=== PATIENT | male | born 1950 | race Caucasian/White ===

== ENCOUNTER 2022-08-25 19:28 | Inpatient (IN) | payer MEDICARE, OTHER ==
[~2022-08-25] VITALS: Ht 172.7 cm; Wt 83.9 kg
[2022-08-25] MEDS ORDERED: TAMS-3 PO (19:54)
[2022-08-25] MEDS ORDERED: FAMO20TA8 PO (19:54)
[2022-08-25] MEDS ORDERED: LOSA25TA27 PO (19:54)
[2022-08-25] MEDS ORDERED: CLOP75TA33 PO (19:54)
[2022-08-25] MEDS ORDERED: FURO40TA5 PO (19:54)
[2022-08-25] MEDS ORDERED: ALPR0.255 PO (19:54)
[2022-08-25] MEDS ORDERED: APIX5TAB PO (19:54)
[2022-08-25] MEDS ORDERED: POLY17PO4 PO (19:54)
[2022-08-25] MEDS ORDERED: MAG355OR18 PO (19:54)
[2022-08-25] MEDS ORDERED: AMIO200T5 PO (19:54)
[2022-08-25] MEDS ORDERED: POTA-58 PO (19:54)
[2022-08-25] MEDS ORDERED: ACET-2154 PO (19:54)
[2022-08-25] MEDS ORDERED: MELA3TAB41 PO (19:54)
[2022-08-25] MEDS ORDERED: CARV3.122 PO (19:54)
[2022-08-25] MEDS ORDERED: ATOR80TA PO (19:54)
[2022-08-25] MEDS ORDERED: IPRA3AMP22 IH (19:54)
--- NOTE | 2022-08-25 20:00 | NUR ---
Spoke to patient's son regarding their request for transfer to [facility]. Son ruby requested to speak to coke handling supervisor and Dr. Chaudhry. His phone number [phone].
[2022-08-25 21:22] LABS: CARBON DIOXIDE 23 mmol/L (21-32); CHLORIDE 97 mmol/L (98-107); CREATININE 2.2 mg/dL (0.6-1.3); GLUCOSE 112 mg/dL (74-106); POTASSIUM 4.5 mmol/L (3.5-5.1); UREA NITROGEN, BLOOD 45 mg/dL (7-18)
[2022-08-25 21:25] LABS: MEAN CORPUSCULAR HEMOGLOBIN 27.3 uug (23.8-33.4); MEAN CORPUSCULAR VOLUME 83.4 fL (73.0-96.2); PLATELET COUNT (AUTO) 231 K/uL (152-348)
[2022-08-25 21:38] LABS: ALANINE AMINOTRANSFERASE 522 U/L (16-63); ALKALINE PHOSPHATASE 455 U/L (50-136); ASPARTATE AMINOTRANSFERASE 358 U/L (15-37); BILIRUBIN,DIRECT 1.1 mg/dL (0.0-0.2); BILIRUBIN,TOTAL 1.9 mg/dL (0.2-1.0); TOTAL PROTEIN, SERUM 7.1 g/dL (6.4-8.2)
[2022-08-25 21:52] LABS: MAGNESIUM 2.4 mg/dL (1.8-2.4)
[2022-08-25] MEDS ORDERED: ASPIRIN 81 MG TAB.CHEW PO ONE (22:15)
[2022-08-25] MEDS ORDERED: ENOXAPARIN SODIUM 80 MG/0.8 ML DISP.SYRIN SQ ONE ×2 (22:15→23:41)
[2022-08-25 22:41] LABS: LYMPHOCYTES % (MANUAL) 24 % (20-40); MONOCYTES % (MANUAL) 13 % (2-10); NEUTROPHILS % (MANUAL) 63 % (42-75)
--- NOTE | 2022-08-25 22:50 | NUR ---
[facility] unable to take patient tonight, was insstructed to call back tomorrow for an available bed.
[2022-08-25] MEDS ORDERED: ASPIRIN 81 MG TAB.CHEW ONE (23:41)
[2022-08-25] MEDS ORDERED: FUROSEMIDE 40 MG/4 ML VIAL IVP SCH (23:45)
[2022-08-25] MEDS ORDERED: NITROGLYCERIN 0.4 MG/TAB BOTTLE SL PRN (23:45)
[2022-08-25] MEDS ORDERED: ENOXAPARIN SODIUM 30 MG/0.3 ML DISP.SYRIN SQ SCH (23:45)
[2022-08-26] MEDS ORDERED: MAG HYDROX/AL HYDROX/SIMETH 30 ML LIQUID UDC PO PRN
[2022-08-26] MEDS ORDERED: ALPRAZOLAM 0.25 MG TABLET PO PRN
[2022-08-26] MEDS ORDERED: MIRALAX 17 GM POWD.PACK PO PRN
[2022-08-26] MEDS ORDERED: IPRATROPIUM BROMIDE 0.5 MG/2.5 ML NEBU NEB PRN
[2022-08-26] MEDS ORDERED: ALBUTEROL SULFATE 2.5 MG/3 ML NEBU IH PRN
--- NOTE | 2022-08-26 | NUR ---
Called 3rd fl for Tele TD bed.
--- NOTE | 2022-08-26 01:30 | NUR ---
Taken for lung scan
--- NOTE | 2022-08-26 02:20 | NUR ---
Called 3rd fl for Tele TD bed again. Given RM 330.
--- NOTE | 2022-08-26 02:50 | NUR ---
Jessie HART called for report.
[2022-08-26] MEDS ORDERED: ACETAMINOPHEN 325 MG TABLET PO PRN (04:00)
--- NOTE | 2022-08-26 05:00 | NUR ---
Pt. admitted to TELE-TD , under care of Dr. Jefferson Belongs List completed Jessie RN aware of patients arrival.
[2022-08-26 05:22] VITALS: BP 90/59
--- NOTE | 2022-08-26 05:25 | NUR ---
admitted this 71 y.o. male with complaints of increasing edema on bilateral lower extremities.he has had a very complicated past medical history.he came from [facility], he is covid negative.pt denies any pain at this time, refused to put on a gown , and wanted to sit just on a bedside chair. did not want to be bothered.nursing staff introduced themselves to pt but was driven away. active listening provided.on oxygen inhalation of 1literl/nc forr sob.
[2022-08-26] MEDS ORDERED: CEFEPIME HCL 1 G in IV DEXTROSE 5% 50 ML IV SCH (06:00)
--- NOTE | 2022-08-26 07:20 | NUR ---
UNABLE TO ASSESS, PT KEPT REFUSING CARE,. ENDORSED TO AM NURSE, IN APPARENTLY FAIR CONDITION ,STILL SITTED ON A BS CHAIR, ,TELE READING ,CONTROL AFIB.
[2022-08-26 07:37] LABS: HEMATOCRIT 37.6 % (36.7-47.1); MEAN CORPUSCULAR HEMOGLOBIN 27.4 uug (23.8-33.4); MEAN CORPUSCULAR VOLUME 83.3 fL (73.0-96.2); PLATELET COUNT (AUTO) 243 K/uL (152-348)
[2022-08-26 07:49] LABS: BILIRUBIN,DIRECT 0.9 mg/dL (0.0-0.2); BILIRUBIN,TOTAL 1.6 mg/dL (0.2-1.0); CREATININE 2.4 mg/dL (0.6-1.3); MAGNESIUM 2.2 mg/dL (1.8-2.4); PHOSPHOROUS 4.5 mg/dL (2.5-4.9); TOTAL PROTEIN, SERUM 6.4 g/dL (6.4-8.2)
[2022-08-26] MEDS: CEFEPIME HCL 1 G in IV DEXTROSE 5% 50 ML IV SCH ×3 (08:00→21:36)
[2022-08-26 08:03] LABS: BILIRUBIN,TOTAL 1.7 mg/dL (0.2-1.0)
[2022-08-26 08:08] VITALS: BP 93/66
[2022-08-26] MEDS: FUROSEMIDE 40 MG/4 ML VIAL IVP SCH ×2 (08:43→16:27)
[2022-08-26] MEDS: AMIODARONE HCL 200 MG TABLET PO SCH ×2 (08:44→16:26)
[2022-08-26] MEDS: POTASSIUM CHLORIDE 20 MEQ TAB.PRT.SR PO SCH (08:49)
[2022-08-26] MEDS: CLOPIDOGREL 75 MG TABLET PO SCH (08:50)
[2022-08-26] MEDS: FAMOTIDINE 20 MG TABLET PO SCH (08:50)
[2022-08-26] MEDS: CARVEDILOL 3.125 MG TABLET PO SCH ×2 (08:51→16:25)
[2022-08-26] MEDS: APIXABAN 5 MG TABLET PO SCH ×2 (09:00→21:21)
[2022-08-26] MEDS ORDERED: ASPIRIN EC 81 MG TABLET.DR PO SCH (09:00)
[2022-08-26] MEDS ORDERED: APIXABAN 2.5 MG TABLET PO SCH (09:00)
[2022-08-26 09:10] LABS: EOSINOPHILS % (MANUAL) 1 % (0-8); LYMPHOCYTES % (MANUAL) 17 % (20-40); MONOCYTES % (MANUAL) 14 % (2-10); NEUTROPHILS % (MANUAL) 68 % (42-75)
[2022-08-26 09:18] LABS: THYROID STIMULATING HORMONE 4.525 mIU/mL (0.358-3.740)
--- NOTE | 2022-08-26 11:47 | NUR ---
Patient continuing to refuse care. Patient refusing INDUSTRIAL GAS FITTER from performing vitals check.
--- NOTE | 2022-08-26 12:18 | NUR ---
Spoke to patient's son and daughter. Notified of patient's unwillingness for patient care and reiterated that this is how the patient usually is. Patient refusing care and most medications throughout shift, unless it is medications that he is familiar with. Lactic Acid elevated, Dr. Melendrez notified. j
--- NOTE | 2022-08-26 13:09 | NUR ---
Patient complaining of lack of sleep, due to patient refusing procedures, vital signs, and medications. Agreed with patient that I would let him sleep, and only speak to him when he's awake in bed room. Patient sleeping on chair near bedside, resting head on bed. Will continue to monitor patient throughout shift.
[2022-08-26 16:25] VITALS: BP 89/67
--- NOTE | 2022-08-26 18:03 | NUR ---
Patient now more compliant with plan of care. Patient able to express feelings in hopes to a resolution to receive care and medication during stay. Patient tolerated care well throughout shift, with less complaints of pain or distress towards end of shift. IV site on Left AC patent and intact. Bed left in lowest position with call light within reach. Comfort measures provided. Will endorse information to PM nurse.
--- NOTE | 2022-08-26 19:00 | NUR ---
Received patient seated at wheelchair, with sob on exercertion, no complain of chest pain, tele monitor A fib, heart rate 98 up to 105. Patient strongly said not to be disturb or wake him up when he's asleep, no matter what. Patient states that he did not have enough sleep last night due to nurses doing vital signs, giving him ice which he requested, checking his tele monitor prove, etc. Patient sound like nurses is just bother him for no reason. Explained to patient that nurses just doing their job, not to just disturb him or bother him, Explained to patient also that he has the right to refused care, refused medications, etc. Presented a plan to the patient that nurses will only come his room on plan hours, such as when giving his meds or do vital signs when he's awake, not wake him up when he's asleep, patient agreed to the plan, cont to monitor.
[2022-08-26 20:00] VITALS: BP 89/71
[2022-08-26] MEDS ORDERED: ENOXAPARIN SODIUM 80 MG/0.8 ML DISP.SYRIN SQ SCH (21:00)
[2022-08-26] MEDS ORDERED: LOSARTAN POTASSIUM 25 MG TABLET PO SCH (21:00)
[2022-08-26] MEDS: TAMSULOSIN HCL 0.4 MG CAP.SR.24H PO SCH (21:19)
[2022-08-26] MEDS: ATORVASTATIN 40 MG TABLET PO SCH (21:19)
[2022-08-26] MEDS: MELATONIN 3 MG TABLET PO SCH (21:34)
--- NOTE | 2022-08-27 | NUR ---
Patient sleep intermittently, prefer to sleep seated on the chair, head rested on the side of the bed, states that it helps him breath better. Patient lower extremities swollen 2+, refused to lay in bed, on continuous oxygen at 2 liters sat 93 to 98%, continue with the plan that staff goes to check his tele monitor when only needed or when he call for assistance. Staff goes to check patient every two hours just to see the patient not to disturb when asleep. cont to monitor.
--- NOTE | 2022-08-27 05:45 | NUR ---
Patient IV site dislogged, prefer to have new one later on, prefer to be left alone at this time, respect patient wishes. cont to monitor.
--- NOTE | 2022-08-27 06:36 | NUR ---
unable to weigh and reinsert new iv line, patient, refused to be disturb, patient asleep, will endorse to next shift.
--- NOTE | 2022-08-27 06:38 | NUR ---
Patient sleep intermittently, tries to sleep in bed, but unsuccessful, difficulty breathing when in bed. Patient back to the chair, head resting on the bed, asleep at this time, no chest, sob on excertion, on 2 liters, sat wnl, cont to monitor.
[2022-08-27 08:00] VITALS: BP 96/70
[2022-08-27 08:27] LABS: HEMATOCRIT 36.2 % (36.7-47.1); MEAN CORPUSCULAR HEMOGLOBIN 27.1 uug (23.8-33.4); PLATELET COUNT (AUTO) 210 K/uL (152-348)
[2022-08-27] MEDS: CEFEPIME HCL 1 G in IV DEXTROSE 5% 50 ML IV SCH ×2 (08:29→20:49)
[2022-08-27] MEDS: FUROSEMIDE 40 MG/4 ML VIAL IVP SCH ×3 (08:30→16:56)
[2022-08-27] MEDS: AMIODARONE HCL 200 MG TABLET PO SCH ×2 (08:34→16:55)
[2022-08-27] MEDS: POTASSIUM CHLORIDE 20 MEQ TAB.PRT.SR PO SCH (08:35)
[2022-08-27] MEDS: FAMOTIDINE 20 MG TABLET PO SCH (08:35)
[2022-08-27] MEDS: CLOPIDOGREL 75 MG TABLET PO SCH (08:35)
[2022-08-27] MEDS: APIXABAN 5 MG TABLET PO SCH ×2 (08:36→20:59)
[2022-08-27] MEDS: CARVEDILOL 3.125 MG TABLET PO SCH ×3 (08:42→16:57)
[2022-08-27 08:47] LABS: NEUTROPHILS % (MANUAL) 0 % (42-75)
[2022-08-27 08:57] LABS: BILIRUBIN,DIRECT 0.8 mg/dL (0.0-0.2); BILIRUBIN,TOTAL 1.7 mg/dL (0.2-1.0); CREATININE 2.2 mg/dL (0.6-1.3); MAGNESIUM 2.3 mg/dL (1.8-2.4); PHOSPHOROUS 3.8 mg/dL (2.5-4.9); POTASSIUM 3.9 mmol/L (3.5-5.1); TOTAL PROTEIN, SERUM 6.3 g/dL (6.4-8.2)
--- NOTE | 2022-08-27 14:35 | NUR ---
Patient requesting not to be bothered while he sleeps. Sign placed on patient's door, do not disturb. Notified patient to use call light when assistance needed. Will continue to monitor patient throughout shift.
--- NOTE | 2022-08-27 18:03 | NUR ---
Patient difficult during half of shift, refusing to be bothered when vitals or lab needed to be drawn. Patient more compliant towards end of shift, but complaints of cold room. Engineering notified. Patient given warm blanket to help with cold. IV site on right hand patent and intact. Comfort measures provided. Will endorse information to PM nurse.
[2022-08-27 20:32] VITALS: BP 89/64
[2022-08-27] MEDS: TAMSULOSIN HCL 0.4 MG CAP.SR.24H PO SCH (20:59)
[2022-08-27] MEDS: MELATONIN 3 MG TABLET PO SCH (21:01)
[2022-08-27] MEDS: ATORVASTATIN 40 MG TABLET PO SCH (21:01)
--- NOTE | 2022-08-27 21:30 | NUR ---
pt is having multiple requests; staff tried to accommodate; earlier family at bedside; update given to them in front of the patient;
--- NOTE | 2022-08-28 | NUR ---
prior arrangement pt refused to be bothered and be awakened; pt refused VS at this time; on the monitor pt's HR is 90 and RR of 20; will continue to monitor.
--- NOTE | 2022-08-28 03:54 | NUR ---
Pt stated he slept better; now he is requesting to be in the shower with running hot water on his shoulder; cordially informed patient that he has the heart monitor and oxygen on at this time; will let MDs know about this request; patient was offered an alternative like heat pack for his shoulder but he declined.
[2022-08-28 04:38] VITALS: BP 89/63
[2022-08-28] MEDS: FUROSEMIDE 40 MG/4 ML VIAL IVP SCH ×3 (08:47→16:39)
[2022-08-28] MEDS: CEFEPIME HCL 1 G in IV DEXTROSE 5% 50 ML IV SCH ×2 (08:47→20:10)
[2022-08-28] MEDS: FAMOTIDINE 20 MG TABLET PO SCH (08:49)
[2022-08-28] MEDS: POTASSIUM CHLORIDE 20 MEQ TAB.PRT.SR PO SCH (08:50)
[2022-08-28] MEDS: CLOPIDOGREL 75 MG TABLET PO SCH (08:50)
[2022-08-28] MEDS: CARVEDILOL 3.125 MG TABLET PO SCH (09:00)
[2022-08-28] MEDS: AMIODARONE HCL 200 MG TABLET PO SCH ×2 (09:00→16:39)
[2022-08-28] MEDS: APIXABAN 5 MG TABLET PO SCH ×2 (09:03→20:34)
[2022-08-28 09:41] LABS: CREATININE 2.3 mg/dL (0.6-1.3); POTASSIUM 4.2 mmol/L (3.5-5.1)
[2022-08-28 09:46] LABS: BILIRUBIN,TOTAL 1.8 mg/dL (0.2-1.0); MAGNESIUM 2.1 mg/dL (1.8-2.4); TOTAL PROTEIN, SERUM 6.5 g/dL (6.4-8.2)
[2022-08-28 09:58] LABS: MEAN CORPUSCULAR HEMOGLOBIN 27.1 uug (23.8-33.4); MEAN CORPUSCULAR VOLUME 82.5 fL (73.0-96.2); PLATELET COUNT (AUTO) 209 K/uL (152-348)
[2022-08-28] MEDS: DOBUTamine IV 250 ML IV PRN (12:21)
--- NOTE | 2022-08-28 12:21 | NUR ---
Spoke to pharmacist regarding patient's dobutamine drip. Pharmacy came upstairs with proper calculations to place into IV pump at 6.3mL/hr with a volume to be infused at a total of 12.6. Aliza pharmacist providing proper calculations to place into IV pump. Dr. Dawson ordered to check patient's vitals every 15 minutes for 2 hours. Will continue to monitor patient.
[2022-08-28 12:22] LABS: EOSINOPHILS % (MANUAL) 3 % (0-8); LYMPHOCYTES % (MANUAL) 20 % (20-40); MONOCYTES % (MANUAL) 15 % (2-10); NEUTROPHILS % (MANUAL) 62 % (42-75)
--- NOTE | 2022-08-28 12:33 | NUR ---
Patient to be NPO at 0000 Midnight, 08/29/2022 per Ultrasound Addendum: 08/28/22 at 1233 by SHELLEY GARCIA RN Amended: Links added.
[2022-08-28 16:00] VITALS: BP 94/64
[2022-08-28 20:10] VITALS: BP 98/60
[2022-08-28] MEDS: TAMSULOSIN HCL 0.4 MG CAP.SR.24H PO SCH (20:31)
[2022-08-28] MEDS: ATORVASTATIN 40 MG TABLET PO SCH (20:32)
[2022-08-28] MEDS: MELATONIN 3 MG TABLET PO SCH (20:33)
--- NOTE | 2022-08-28 21:00 | NUR ---
episode of 7 beats NSVT; VS wnl and asymptomatic; will observe closely.
[2022-08-29 00:15] VITALS: BP 94/66
[2022-08-29 04:00] VITALS: BP 106/59
--- NOTE | 2022-08-29 06:47 | NUR ---
Pt rested well; remains on dobutamine drip; 700 ml urine output when pt self cath; another NS VTACH 5 beats, asymptomatic and VSS; needs attended; continue to monitor; continue plan of care.
--- NOTE | 2022-08-29 08:00 | NUR ---
RECEIVED PATIENT SITTING ON CHAIR, ON THE PHONE WITH FAMILY, DENIES PAIN OR SOB, SR/ST ON MONITOR. ON DOBUTAMINE DRIP 5MCG/KG (12.6 MLS/HR)
[2022-08-29 08:22] LABS: HEMATOCRIT 36.2 % (36.7-47.1); MEAN CORPUSCULAR HEMOGLOBIN 26.9 uug (23.8-33.4); MEAN CORPUSCULAR VOLUME 81.9 fL (73.0-96.2); PLATELET COUNT (AUTO) 202 K/uL (152-348)
[2022-08-29 08:23] LABS: NEUTROPHILS % (MANUAL) 0 % (42-75)
[2022-08-29 08:36] LABS: BILIRUBIN,TOTAL 1.9 mg/dL (0.2-1.0); CREATININE 2.1 mg/dL (0.6-1.3); MAGNESIUM 2.2 mg/dL (1.8-2.4); PHOSPHOROUS 3.4 mg/dL (2.5-4.9); POTASSIUM 3.4 mmol/L (3.5-5.1); TOTAL PROTEIN, SERUM 6.6 g/dL (6.4-8.2)
[2022-08-29] MEDS: CEFEPIME HCL 1 G in IV DEXTROSE 5% 50 ML IV SCH ×2 (08:42→21:31)
[2022-08-29] MEDS: AMIODARONE HCL 200 MG TABLET PO SCH ×3 (08:47→16:50)
[2022-08-29] MEDS: FUROSEMIDE 40 MG/4 ML VIAL IVP SCH ×4 (08:48→16:51)
[2022-08-29] MEDS: CLOPIDOGREL 75 MG TABLET PO SCH (08:49)
[2022-08-29] MEDS: FAMOTIDINE 20 MG TABLET PO SCH (08:49)
[2022-08-29] MEDS: POTASSIUM CHLORIDE 20 MEQ TAB.PRT.SR PO SCH (08:50)
[2022-08-29] MEDS: APIXABAN 5 MG TABLET PO SCH ×2 (08:54→21:32)
[2022-08-29] MEDS: DOBUTamine IV 250 ML IV PRN (09:01)
[2022-08-29 09:05] VITALS: BP 86/69
[2022-08-29] MEDS ORDERED: POTASSIUM CHLORIDE 10 MEQ TAB.PRT.SR PO ONE (09:15)
--- NOTE | 2022-08-29 10:00 | NUR ---
SEEN BY DR CASTANEDA MADE AWARE OF LOW BP IN SPITE OF DOBUTAMINE DRIP. ADVISED TO CONTINUE DRIP ORDERED, CONTINUE LASIX, AMIODARONE. SEE NOTES
[2022-08-29] MEDS ORDERED: LACTULOSE 20 G/30 ML LIQUID UDC PO ONE (10:30)
[2022-08-29 11:35] VITALS: BP 102/75
--- NOTE | 2022-08-29 12:00 | NUR ---
SEEN BY HOSPITALIST DR DEE, UPDATED PLAN OF CARE. SEE NOTES
[2022-08-29 16:00] VITALS: BP 93/58
--- NOTE | 2022-08-29 18:13 | NUR ---
CONTINUE SAMUEL MONITORING
--- NOTE | 2022-08-29 19:30 | NUR ---
ROUNDS MADE PATIENT AWAKE OOB SITTING IN CHAIR .PATIENT AAOX4. ON DOBUTAMINE DRIP AT 12.6 ML/HR IN PROGRESS . AFIB WITH PACE RHYTHM ON THE HEART MONITOR .CALL LIGHT PLACED WITH IN REACH . ADVISED TO CALL FOR HELP .
[2022-08-29 20:00] VITALS: BP 93/59
--- NOTE | 2022-08-29 20:00 | NUR ---
ASSISTED PATIENT WITH IN AND OUT CATHETERIZATION PATIENT BEEN DOING IT HIMSELF SUPPLIES AT B/S. OBTAINED 600 ML OF YELLOWISH URINE .
--- NOTE | 2022-08-29 21:31 | NUR ---
DUE ANTIBIOTIC MAXEPINE GIVEN FLUSHED H/L.
[2022-08-29] MEDS: TAMSULOSIN HCL 0.4 MG CAP.SR.24H PO SCH (21:32)
[2022-08-29] MEDS: ATORVASTATIN 40 MG TABLET PO SCH (21:32)
[2022-08-29] MEDS: MELATONIN 3 MG TABLET PO SCH (21:33)
[2022-08-30] VITALS: BP 93/59
--- NOTE | 2022-08-30 03:38 | NUR ---
PATIENT CALLED AND REQUESTED FOR WATER . PATIENT AWAKE SITTING IN THE CHAIR .TO DISTRESS NOTED TOLERATING 02 NASAL CANNULA AT 1.5 LITERS/MIN .
[2022-08-30 04:00] VITALS: BP 92/57
[2022-08-30] MEDS: DOBUTamine IV 250 ML IV PRN (07:15)
--- NOTE | 2022-08-30 07:30 | NUR ---
RECEIVED PATIENT SITTING IN AWAKE ALERT AND ORIENTED X3 DENIES PAIN OR SOB, SATURATING 98% RA. AFIB ON MONITOR 98-110/MIN. CONTINUE WITH SAMUEL OBSERVATION
[2022-08-30 07:43] LABS: MEAN CORPUSCULAR VOLUME 81.8 fL (73.0-96.2)
[2022-08-30 07:47] LABS: HEMATOCRIT 36.4 % (36.7-47.1); MEAN CORPUSCULAR HEMOGLOBIN 27.4 uug (23.8-33.4); PLATELET COUNT (AUTO) 190 K/uL (152-348)
[2022-08-30 07:54] LABS: CREATININE 2.1 mg/dL (0.6-1.3); MAGNESIUM 2.1 mg/dL (1.8-2.4); PHOSPHOROUS 3.4 mg/dL (2.5-4.9); POTASSIUM 3.4 mmol/L (3.5-5.1); TOTAL PROTEIN, SERUM 6.6 g/dL (6.4-8.2)
[2022-08-30 08:10] VITALS: BP 101/69
[2022-08-30] MEDS: CEFEPIME HCL 1 G in IV DEXTROSE 5% 50 ML IV SCH (08:32)
[2022-08-30] MEDS: FUROSEMIDE 40 MG/4 ML VIAL IVP SCH ×3 (08:35→16:52)
[2022-08-30] MEDS: CLOPIDOGREL 75 MG TABLET PO SCH (08:35)
[2022-08-30] MEDS: FAMOTIDINE 20 MG TABLET PO SCH (08:36)
[2022-08-30] MEDS: AMIODARONE HCL 200 MG TABLET PO SCH ×2 (08:36→16:51)
[2022-08-30] MEDS: POTASSIUM CHLORIDE 20 MEQ TAB.PRT.SR PO SCH (08:36)
[2022-08-30] MEDS: APIXABAN 5 MG TABLET PO SCH ×2 (08:37→20:13)
[2022-08-30] MEDS ORDERED: POTASSIUM CHLORIDE 20 MEQ POWDER PACKET GT ONE (08:45)
--- NOTE | 2022-08-30 10:00 | NUR ---
SEEN BY DR CASTANEDA FOR FOLLOW-UP, AWAITING PLACEMENT TO HIGHER LEVEL OF CARE
[2022-08-30 10:47] LABS: LYMPHOCYTES % (MANUAL) 14 % (20-40); MONOCYTES % (MANUAL) 18 % (2-10); NEUTROPHILS % (MANUAL) 68 % (42-75)
[2022-08-30] MEDS ORDERED: POTASSIUM CHLORIDE 20 MEQ TAB.PRT.SR PO ONE (11:00)
--- NOTE | 2022-08-30 11:00 | NUR ---
SEEN BY PHYSICAL THERAPIST FOR EXERCISES TOLERATED FAIRLY WELL. PATIENT AGREED TO STAY IN BED AND TOLERATED X3 HOURS WITHOUT SOB
[2022-08-30 11:32] VITALS: BP 98/63
[2022-08-30] MEDS: GLUCERNA SHAKE 237 ML CAN PO SCH ×2 (13:10→16:52)
--- NOTE | 2022-08-30 15:15 | NUR ---
INSPECTOR FINAL ASSEMBLY CONVEYOR LINE SPOKE WITH PATIENT REGARDING TRANSFER TO [facility] FOR HIGHER LEVEL OF CARE. AWAITING CALL BACK FROM [facility]
--- NOTE | 2022-08-30 15:27 | NUR ---
IN & OUT SELF CATH DONE ASEPTICALLY OBTAINED 800 MLS CLEAR NORA URINE
[2022-08-30 16:41] VITALS: BP 116/58
--- NOTE | 2022-08-30 19:30 | NUR ---
Received patient sitting on the side of the bed leaning forward on the bedside table. On O2 at 1.5L/min via NC. O2 sat at 99%. A. fib on tele, V pacing and with PVC's with HR of 121/min. IV site on left hand intact and patent. Dobutamine drip infusing. Encourage to lay in bed to have his legs elevated but patient refused. Needs assessed and attended to. Safety measure initiated and call light within reached.
[2022-08-30 20:00] VITALS: BP 85/53
[2022-08-30] MEDS: TAMSULOSIN HCL 0.4 MG CAP.SR.24H PO SCH (20:11)
[2022-08-30] MEDS: ATORVASTATIN 40 MG TABLET PO SCH (20:11)
[2022-08-30] MEDS: CEFEPIME HCL 2 G in IV DEXTROSE 5% 100 ML IV SCH (21:05)
[2022-08-30] MEDS: MELATONIN 3 MG TABLET PO SCH (21:58)
--- NOTE | 2022-08-30 22:15 | NUR ---
Patient reported IV site on left hand was accidentally pulled out. Noted with minimal bleeding on site and cover with gauze. IV drip of Dobutamine transfer to IV site on right FA.
--- NOTE | 2022-08-30 22:54 | NUR ---
Telephone call from [facility] transfer center/[facility], stated that patient was accepted at [facility] by Dr. Dawson. Information needed provided. They will call back once bed is available.
[2022-08-31] VITALS: BP 106/58
[2022-08-31 04:00] VITALS: BP 94/66
[2022-08-31] MEDS: DOBUTamine IV 250 ML IV PRN (05:12)
--- NOTE | 2022-08-31 05:54 | NUR ---
Patient slept intermittently throughout the night on reclining chair. Refused to lay down in bed. No signs of respiratory distress or pain. On O2 at 1.5L/min via NC PRN for comfort. A-fib with PVCs on tele with a HR of 114/min. IV site on right forearm, patent and intact. No adverse reactions to IV antibiotic noted. All needs assessed and attended to, but continues to be unsatisfied with care provided.
[2022-08-31] MEDS ORDERED: METOLAZONE 2.5 MG TABLET PO ONE (09:00)
[2022-08-31 09:01] LABS: HEMATOCRIT 37.4 % (36.7-47.1); MEAN CORPUSCULAR HEMOGLOBIN 27.4 uug (23.8-33.4); PLATELET COUNT (AUTO) 184 K/uL (152-348)
[2022-08-31] MEDS: CEFEPIME HCL 2 G in IV DEXTROSE 5% 100 ML IV SCH (09:18)
[2022-08-31] MEDS: POTASSIUM CHLORIDE 20 MEQ TAB.PRT.SR PO SCH (09:18)
[2022-08-31] MEDS: APIXABAN 5 MG TABLET PO SCH (09:19)
[2022-08-31] MEDS: AMIODARONE HCL 200 MG TABLET PO SCH (09:20)
[2022-08-31] MEDS: CLOPIDOGREL 75 MG TABLET PO SCH (09:20)
[2022-08-31] MEDS: FAMOTIDINE 20 MG TABLET PO SCH (09:20)
[2022-08-31] MEDS: FUROSEMIDE 40 MG/4 ML VIAL IVP SCH ×2 (09:21→12:33)
[2022-08-31] MEDS: GLUCERNA SHAKE 237 ML CAN PO SCH ×2 (09:21→12:33)
[2022-08-31 10:38] LABS: BILIRUBIN,TOTAL 2.3 mg/dL (0.2-1.0); CREATININE 2.1 mg/dL (0.6-1.3); MAGNESIUM 2.3 mg/dL (1.8-2.4); POTASSIUM 4.4 mmol/L (3.5-5.1); TOTAL PROTEIN, SERUM 6.8 g/dL (6.4-8.2)
--- NOTE | 2022-08-31 11:47 | NUR ---
STILL WAITING FOR BED AVAILABILITY FROM [facility].
[2022-08-31] MEDS ORDERED: CEFE1FRO IV (13:11)
[2022-08-31] MEDS ORDERED: AMIO200T6 PO (13:11)
[2022-08-31] MEDS ORDERED: FURO10VI IVP (13:11)
--- NOTE | 2022-08-31 13:45 | NUR ---
PER DR CASTANEDA OK TO STOP DOBUTREX DURING TRANSFER TO [facility] AND RESUME THEREAFTER
--- NOTE | 2022-08-31 14:00 | NUR ---
PER PROFESSIONAL EMPLOYER CONSULTANT PATIENT HAVE A BED AT [facility], REPORT GIVEN TO STAFF/ RN AT [facility] AND ADM COORDINATOR. PATIENT ROOM # [id number]
[2022-08-31 14:27] LABS: BAND % (MANUAL) 1 % (0-10); LYMPHOCYTES % (MANUAL) 12 % (20-40); MONOCYTES % (MANUAL) 16 % (2-10); NEUTROPHILS % (MANUAL) 71 % (42-75)
--- NOTE | 2022-08-31 15:02 | NUR ---
DISCHARGED TO [facility] VIA AMBULANCE WITH RN ON BOARD.
[2022-08-31 15:11] VITALS: BP 97/58
== END 2022-08-31 15:00 | disposition short-term general hospital (02) | DRG 177 ==
LOC: ER 19:28 → TELE-TD3 22:47
PROVIDERS: ADMIT Student in an Organized Health Care Education/Training Program; ATTEND Internal Medicine
DX: J15.6 Pneumonia due to other Gram-negative bacteria (principal); I21.A1 Myocardial infarction type 2; I50.23 Acute on chronic systolic (congestive) heart failure; N17.0 Acute kidney failure with tubular necrosis; R57.0 Cardiogenic shock; I13.0 Hypertensive heart and chronic kidney disease with heart failure and stage 1 through stage 4 chronic kidney disease, or unspecified chronic kidney disease; E44.1 Mild protein-calorie malnutrition; I48.20 Chronic atrial fibrillation, unspecified; E87.1 Hypo-osmolality and hyponatremia; G93.1 Anoxic brain damage, not elsewhere classified; J44.0 Chronic obstructive pulmonary disease with (acute) lower respiratory infection; E87.20 Acidosis, unspecified; I42.9 Cardiomyopathy, unspecified; E87.6 Hypokalemia; E88.09 Other disorders of plasma-protein metabolism, not elsewhere classified; I25.10 Atherosclerotic heart disease of native coronary artery without angina pectoris; G47.00 Insomnia, unspecified; I25.2 Old myocardial infarction; N18.9 Chronic kidney disease, unspecified; N40.0 Benign prostatic hyperplasia without lower urinary tract symptoms; Z90.49 Acquired absence of other specified parts of digestive tract; Z98.61 Coronary angioplasty status; R74.01 Elevation of levels of liver transaminase levels; J44.9 Chronic obstructive pulmonary disease, unspecified; F41.9 Anxiety disorder, unspecified; Z68.28 Body mass index [BMI] 28.0-28.9, adult; Z86.74 Personal history of sudden cardiac arrest; Z95.810 Presence of automatic (implantable) cardiac defibrillator; Z79.01 Long term (current) use of anticoagulants
CPT/HCPCS: 36415; 70030-TC; 71045; 76705; 78580; 83605; 83735; 84100; 84443; 84484; 85025; 85730; 93005; 93307; A4663; A9540; G0378; J0692; J1650; J1940